=== PATIENT | female | born 1960 | race African-American/Black ===

== ENCOUNTER 2016-10-21 06:31 | Emergency (ER) | payer MEDICAID, MEDICARE ==
[~2016-10-21] VITALS: Ht 170.2 cm; Wt 81.6 kg
[~2016-10-21 06:31] MED LIST: ALPR0.5T; SERT25TA84
[2016-10-21 06:58] VITALS: BP 122/84
[2016-10-22] MEDS ORDERED: LORA-352 PO (00:35)
[2016-10-22] MEDS ORDERED: SERT-160 PO (00:35)
[2016-10-22] MEDS ORDERED: ALPR1TAB7 PO (00:35)
[2016-10-22] MEDS ORDERED: ATOR20TA50 PO (00:35)
== END 2016-10-21 09:08 | disposition left against medical advice (07) ==
LOC: ER 06:37
DX: R53.1 Weakness (principal); M79.1 Myalgia; Z53.21 Procedure and treatment not carried out due to patient leaving prior to being seen by health care provider

== ENCOUNTER 2022-02-10 09:40 | Inpatient (IN) | payer OTHER, MEDICAID ==
[~2022-02-10] VITALS: Ht 170.2 cm; Wt 85.1 kg
[~2022-02-10 09:40] MED LIST changes: -ALPR0.5T; +ALPR1TAB7 PO; +ATOR20TA50 PO; +LORA10TA6 PO; +SERT-160 PO; -SERT25TA84
[2022-02-10 10:35] LABS: Basophils # (auto) 0 10 ^3/uL (0-0.2); Basophils % (auto) 0.6 % (0.0-2.0); Eosinophils # (auto) 0.2 10 ^3/uL (0-0.8); Hematocrit 41.5 % (36.0-46.0); Hemoglobin 13.2 g/dL (12.2-16.2); Lymphocytes # (auto) 1.9 10 ^3/uL (0.4-5.4); Mean Corpuscular Hemoglobin 27.1 pg (28.0-32.0); Mean Corpuscular Hgb Conc. 31.9 g/dL (32.0-36.0); Mean Corpuscular Volume 85.1 fL (80.0-100.0); Monocytes # (auto) 0.4 10 ^3/uL (0-1.3); Monocytes % (auto) 6.5 % (0.0-12.0); Neutrophils # (auto) 3.7 10 ^3/uL (1.6-8.6); Neutrophils % (auto) 59.9 % (37.0-80.0); Nucleated Red Blood Cells % 0.1 %; Red Blood Cells 4.87 10^6/uL (4.0-5.20); Red Cell Distribution Width 13.6 % (11.8-14.3); White Blood Cell 6.2 10^3/uL (4.4-10.8)
[2022-02-10 10:49] LABS: Albumin 4.1 g/dL (3.4-5.0); Calcium 8.8 mg/dL (8.5-10.1); Potassium 3.9 mmol/L (3.5-5.1)
[2022-02-10 10:52] LABS: BUN/Creatinine Ratio 12.1; Bilirubin, Total 0.4 mg/dL (0.2-1.0)
[2022-02-10 13:16] LABS: Amylase 61 U/L (25-115); Lipase 82 U/L (73-393)
[2022-02-10] MEDS ORDERED: MORPHINE SULFATE 4 MG/ML SYR/VIAL IV ONE (15:45)
[2022-02-10] MEDS ORDERED: ONDANSETRON HCL 4 MG/2 ML VIAL IV ONE (15:45)
[2022-02-10 16:53] LABS: Urine Bacteria NONE SEEN /hpf (None Seen); Urine Blood Negative /uL (Negative); Urine Mucus FEW (None Seen); Urine Specific Gravity 1.026 (1.001-1.035); Urine WBC 18 /hpf (0 - 5)
[2022-02-10] MEDS ORDERED: PANTOPRAZOLE 40 MG/10 ML VIAL INJ IV ONE (17:00)
[2022-02-10] MEDS ORDERED: ONDANSETRON HCL 4 MG/2 ML VIAL IV PRN (17:00)
[2022-02-10] MEDS ORDERED: cefTRIAXone 1GM/50ML D5W 50 ML IV ONE (17:15)
[2022-02-10] MEDS: LACTATED RINGER'S 1,000 ML IV SCH (17:57)
[2022-02-10 18:09] LABS: INR 1.03 (0.9-1.15)
[2022-02-10 18:14] LABS: Amylase 52 U/L (25-115); Lipase 61 U/L (73-393)
[2022-02-10 18:31] LABS: Cholesterol < 50 mg/dL (< 200)
[2022-02-10 18:34] LABS: HDL Cholesterol 54 mg/dL (40-59); LDL Cholesterol 150 mg/dL (< 100); Triglycerides < 2 mg/dL (< 150)
[2022-02-10] MEDS ORDERED: ALPR0.25 PO (21:09)
[2022-02-10] MEDS ORDERED: SERT25TA84 PO (21:09)
[2022-02-10 22:21] VITALS: BP 138/78
[2022-02-11 03:58] LABS: Basophils # (auto) 0 10 ^3/uL (0-0.2); Basophils % (auto) 0.5 % (0.0-2.0); Eosinophils # (auto) 0.2 10 ^3/uL (0-0.8); Eosinophils % (auto) 3.1 % (0.0-7.0); Hematocrit 36.1 % (36.0-46.0); Hemoglobin 11.9 g/dL (12.2-16.2); Lymphocytes # (auto) 1.9 10 ^3/uL (0.4-5.4); Lymphocytes % (auto) 33.4 % (10.0-50.0); Mean Corpuscular Hemoglobin 28.2 pg (28.0-32.0); Mean Corpuscular Volume 85.4 fL (80.0-100.0); Monocytes # (auto) 0.5 10 ^3/uL (0-1.3); Monocytes % (auto) 8.7 % (0.0-12.0); Neutrophils % (auto) 54.3 % (37.0-80.0); Nucleated Red Blood Cells % 0.1 %; Red Blood Cells 4.23 10^6/uL (4.0-5.20); Red Cell Distribution Width 13.5 % (11.8-14.3); White Blood Cell 5.5 10^3/uL (4.4-10.8)
[2022-02-11 04:12] LABS: Potassium 3.5 mmol/L (3.5-5.1)
[2022-02-11 04:23] LABS: Albumin 3.3 g/dL (3.4-5.0); BUN/Creatinine Ratio 12.7; Bilirubin, Total 0.3 mg/dL (0.2-1.0); Calcium 8.5 mg/dL (8.5-10.1); Total Protein 6.6 g/dL (6.4-8.2)
[2022-02-11 05:00] VITALS: BP 109/63
[2022-02-11] MEDS: LACTATED RINGER'S 1,000 ML IV SCH ×2 (05:34→12:33)
[2022-02-11 09:00] VITALS: BP 121/71
[2022-02-11] MEDS: cefTRIAXone 1GM/50ML D5W 50 ML IV SCH (09:07)
[2022-02-11] MEDS: PANTOPRAZOLE 40 MG/10 ML VIAL INJ IV SCH (09:07)
[2022-02-11] MEDS: MORPHINE SULFATE INJ 2 MG/ml SYRG IV PRN (09:08)
[2022-02-11] MEDS ORDERED: ENOXAPARIN SOD 40 MG/0.4 ML SYRINGE SC SCH (10:00)
[2022-02-11 13:00] VITALS: BP 118/67
[2022-02-11] MEDS ORDERED: FLUTICASONE PROP NASAL SPR 0.05 % (50MCG) 16GM EACHNOSTRI PRN ×2 (16:00→16:45)
[2022-02-11 17:00] VITALS: BP 103/55
[2022-02-11] MEDS: HYDROcodone-ACET 5/325MG TAB PO PRN (18:20)
[2022-02-11 22:00] VITALS: BP 133/67
[2022-02-11] MEDS ORDERED: ALPRAZolam 0.25 MG TAB PO SCH (22:00)
[2022-02-11] MEDS: SERTRALINE HCL 50 MG TAB PO SCH (22:00)
[2022-02-11] MEDS: metroNIDAZOLE 500MG/100ML 100 ML IV SCH (22:00)
[2022-02-12 04:33] LABS: INR 1.05 (0.9-1.15); Partial Thromboplastin Time 29.1 sec (24.6-33.4)
[2022-02-12] MEDS: ALPRAZolam 0.5 MG TAB PO PRN ×2 (04:53→13:26)
[2022-02-12 05:00] VITALS: BP 129/75
[2022-02-12] MEDS: LACTATED RINGER'S 1,000 ML IV SCH ×4 (05:48→23:23)
[2022-02-12] MEDS: metroNIDAZOLE 500MG/100ML 100 ML IV SCH ×3 (06:57→21:47)
[2022-02-12] MEDS ORDERED: NEOSTIGMINE 1 MG/ML INJ (10mg/10ML VIAL) ONE (08:17)
[2022-02-12] MEDS ORDERED: SODIUM CHLORIDE LOCK 10 ML ONE (08:17)
[2022-02-12] MEDS ORDERED: fentaNYL CITRATE 100 MCG/2 ML VL ONE (08:17)
[2022-02-12] MEDS ORDERED: GLYCOPYRROLATE 0.2 MG/ML 1ML VIAL ONE (08:17)
[2022-02-12] MEDS ORDERED: ROCURONIUM 10MG/ML 10ML VIAL IV ONE (08:17)
[2022-02-12] MEDS ORDERED: MIDAZOLAM HCL 2MG/2ML 2ml VIAL (1mg/ml) ONE (08:17)
[2022-02-12] MEDS ORDERED: DexAMETHasone SOD PHOS 10MG/1ML VIAL INJ ONE (08:17)
[2022-02-12] MEDS ORDERED: MEPERIDINE HCL (25 MG/ML) 1ML VIAL ONE (08:17)
[2022-02-12] MEDS ORDERED: ONDANSETRON HCL 4 MG/2 ML VIAL ONE (08:17)
[2022-02-12] MEDS ORDERED: levoFLOXacin 500MG 100 ML IV ONE (08:30)
[2022-02-12] MEDS ORDERED: HYDROmorphone HCL 2 MG/ML VL/or syr IV PRN (08:45)
[2022-02-12] MEDS ORDERED: MORPHINE SULFATE 4 MG/ML SYR/VIAL IV PRN (08:45)
[2022-02-12] MEDS ORDERED: METOCLOPRAMIDE HCL 5MG/ml INJ 2ml VIAL IV PRN (08:45)
[2022-02-12 09:00] VITALS: BP 122/57
[2022-02-12] MEDS: cefTRIAXone 1GM/50ML D5W 50 ML IV SCH (09:00)
[2022-02-12] MEDS ORDERED: BUPIVACAINE W/ EPINEPH 0.5% INJ 50ML MDV IJ ONE (09:00)
[2022-02-12] MEDS: SERTRALINE HCL 50 MG TAB PO SCH ×3 (10:00→21:48)
[2022-02-12] MEDS: PANTOPRAZOLE 40 MG/10 ML VIAL INJ IV SCH (10:00)
[2022-02-12] MEDS ORDERED: POVIDONE IODINE 10 % TOPICAL OINT 30GM TOP ONE (10:26)
[2022-02-12] MEDS ORDERED: HYDROmorphone HCL 2 MG/ML VL/or syr IV ONE (11:03)
[2022-02-12 12:03] VITALS: BP 100/56
[2022-02-12 13:00] VITALS: BP 124/64
[2022-02-12 16:34] VITALS: BP 116/76
[2022-02-12] MEDS: MORPHINE SULFATE INJ 2 MG/ml SYRG IV PRN (18:10)
[2022-02-12 21:52] VITALS: BP 137/63
[2022-02-13 05:00] VITALS: BP 124/63
[2022-02-13] MEDS: metroNIDAZOLE 500MG/100ML 100 ML IV SCH ×2 (05:31→14:00)
[2022-02-13] MEDS: ALPRAZolam 0.5 MG TAB PO PRN (05:42)
[2022-02-13] MEDS: HYDROcodone-ACET 5/325MG TAB PO PRN ×2 (05:46→12:05)
[2022-02-13 09:00] VITALS: BP 115/67
[2022-02-13] MEDS: PANTOPRAZOLE 40 MG/10 ML VIAL INJ IV SCH (09:03)
[2022-02-13] MEDS: SERTRALINE HCL 50 MG TAB PO SCH (09:03)
[2022-02-13] MEDS: cefTRIAXone 1GM/50ML D5W 50 ML IV SCH (09:03)
[2022-02-13 11:51] LABS: Basophils # (auto) 0 10 ^3/uL (0-0.2); Basophils % (auto) 0.4 % (0.0-2.0); Eosinophils # (auto) 0 10 ^3/uL (0-0.8); Eosinophils % (auto) 0.4 % (0.0-7.0); Hematocrit 34.9 % (36.0-46.0); Hemoglobin 11.5 g/dL (12.2-16.2); Lymphocytes # (auto) 1.7 10 ^3/uL (0.4-5.4); Lymphocytes % (auto) 19.2 % (10.0-50.0); Mean Corpuscular Hemoglobin 27.9 pg (28.0-32.0); Mean Corpuscular Volume 84.4 fL (80.0-100.0); Monocytes # (auto) 0.7 10 ^3/uL (0-1.3); Monocytes % (auto) 8.3 % (0.0-12.0); Neutrophils # (auto) 6.3 10 ^3/uL (1.6-8.6); Neutrophils % (auto) 71.7 % (37.0-80.0); Red Blood Cells 4.14 10^6/uL (4.0-5.20); Red Cell Distribution Width 13.4 % (11.8-14.3); White Blood Cell 8.7 10^3/uL (4.4-10.8)
[2022-02-13 12:10] LABS: Albumin 3.5 g/dL (3.4-5.0); Calcium 9.1 mg/dL (8.5-10.1); Potassium 3.4 mmol/L (3.5-5.1)
[2022-02-13 12:15] LABS: BUN/Creatinine Ratio 6.7; Bilirubin, Total 0.3 mg/dL (0.2-1.0)
[2022-02-13 13:00] VITALS: BP 131/74
[2022-02-13] MEDS ORDERED: POTASSIUM CHL 20 Meq TABLET PO ONE (13:45)
== END 2022-02-13 15:20 | disposition home or self-care (01) | DRG 418 ==
LOC: ER 09:40 → OVERFLOW 17:01 → WEST WING 21:30
PROVIDERS: ADMIT Registered Nurse; ATTEND Internal Medicine
PROC: 0FT44ZZ Resection of Gallbladder, Percutaneous Endoscopic Approach (ICD-10-PCS; principal; 2022-02-12 09:32)
DX: K80.12 Calculus of gallbladder with acute and chronic cholecystitis without obstruction (principal); N39.0 Urinary tract infection, site not specified; E78.5 Hyperlipidemia, unspecified; F41.9 Anxiety disorder, unspecified; N18.2 Chronic kidney disease, stage 2 (mild); F32.A Depression, unspecified; Z20.822 Contact with and (suspected) exposure to COVID-19; I12.9 Hypertensive chronic kidney disease with stage 1 through stage 4 chronic kidney disease, or unspecified chronic kidney disease; Z82.3 Family history of stroke; Z82.49 Family history of ischemic heart disease and other diseases of the circulatory system; Z83.3 Family history of diabetes mellitus; Z86.73 Personal history of transient ischemic attack (TIA), and cerebral infarction without residual deficits; Z90.710 Acquired absence of both cervix and uterus; Z88.0 Allergy status to penicillin; Z88.5 Allergy status to narcotic agent
CPT/HCPCS: 36415; 71045; 74176; 76705; 80053; 80061; 81001; 82150; 83036; 83690; 84443; 84702; 85025; 85610; 85730; 86850; 86900; 86901; 87086; 93005; 96365; 96375; C9113; G0378; J0696; J1100; J1956; J2250; J2405; J3490

== ENCOUNTER → 2022-03-01 | Outpatient (CLI) | payer OTHER, MEDICAID ==
[~2022-03-01] MED LIST changes: +ALPR0.25 PO; -ALPR1TAB7 PO
[2022-03-01 09:38] LABS: Cholesterol 240 mg/dL (< 200); HDL Cholesterol 41 mg/dL (40-59); LDL Cholesterol 182 mg/dL (< 100); Triglycerides 131 mg/dL (< 150)
== END | disposition home or self-care (01) ==
LOC: LAB 08:15
PROVIDERS: ATTEND Internal Medicine
DX: Z00.00 Encounter for general adult medical examination without abnormal findings (principal); Z12.0 Encounter for screening for malignant neoplasm of stomach; F10.21 Alcohol dependence, in remission; F33.40 Major depressive disorder, recurrent, in remission, unspecified
CPT/HCPCS: 36415; 80061; 84439; 84443

== ENCOUNTER 2022-05-17 12:42 | Day surgery (SDC) | payer OTHER, MEDICAID ==
[2022-05-14 10:06] LABS: Basophils # (auto) 0.1 10 ^3/uL (0-0.2); Basophils % (auto) 0.7 % (0.0-2.0); Eosinophils # (auto) 0.2 10 ^3/uL (0-0.8); Eosinophils % (auto) 2.6 % (0.0-7.0); Hematocrit 38.1 % (36.0-46.0); Hemoglobin 12.6 g/dL (12.2-16.2); Lymphocytes # (auto) 2.2 10 ^3/uL (0.4-5.4); Lymphocytes % (auto) 28.6 % (10.0-50.0); Mean Corpuscular Hemoglobin 27.6 pg (28.0-32.0); Mean Corpuscular Volume 83.7 fL (80.0-100.0); Monocytes # (auto) 0.6 10 ^3/uL (0-1.3); Monocytes % (auto) 7.6 % (0.0-12.0); Neutrophils # (auto) 4.6 10 ^3/uL (1.6-8.6); Neutrophils % (auto) 60.5 % (37.0-80.0); Nucleated Red Blood Cells % 0.1 %; Red Blood Cells 4.56 10^6/uL (4.0-5.20); Red Cell Distribution Width 14.1 % (11.8-14.3); White Blood Cell 7.6 10^3/uL (4.4-10.8)
[2022-05-14 10:25] LABS: INR 0.97 (0.9-1.15); Partial Thromboplastin Time 27.9 sec (24.6-33.4)
[2022-05-14 11:19] LABS: Albumin 3.9 g/dL (3.4-5.0); BUN/Creatinine Ratio 15.4; Bilirubin, Total 0.4 mg/dL (0.2-1.0); Calcium 9.1 mg/dL (8.5-10.1); Potassium 4.6 mmol/L (3.5-5.1); Total Protein 7.9 g/dL (6.4-8.2)
[~2022-05-17] VITALS: Ht 170.2 cm; Wt 80.7 kg
[~2022-05-17 12:42] MED LIST changes: +LEVO25TA49 PO; -LORA10TA6 PO
[2022-05-17] MEDS ORDERED: PROPOFOL 10 MG/ML 20 ML IV ONE ×2 (14:02→14:23)
[2022-05-17 15:08] VITALS: BP 125/70
== END 2022-05-17 15:19 | disposition home or self-care (01) ==
LOC: GI 12:42
PROVIDERS: ATTEND Internal Medicine Gastroenterology
DX: R19.7 Diarrhea, unspecified (principal); K64.0 First degree hemorrhoids; Z86.010 Personal history of colon polyps; Z20.822 Contact with and (suspected) exposure to COVID-19; I10 Essential (primary) hypertension; F32.A Depression, unspecified; F41.9 Anxiety disorder, unspecified; Z90.710 Acquired absence of both cervix and uterus; Z98.890 Other specified postprocedural states; Z79.899 Other long term (current) drug therapy
CPT/HCPCS: 36415; 45378; 80053; 85025; 85610; 85730; J2704; J7030; U0003

== ENCOUNTER → 2022-07-22 | Outpatient (CLI) | payer OTHER, MEDICAID ==
[2022-07-22 09:46] LABS: Cholesterol 166 mg/dL (< 200); HDL Cholesterol 55 mg/dL (40-59); LDL Cholesterol 105 mg/dL (< 100); Triglycerides 86 mg/dL (< 150)
== END | disposition home or self-care (01) ==
LOC: LAB 08:26
PROVIDERS: ATTEND Internal Medicine
DX: E78.5 Hyperlipidemia, unspecified (principal)
CPT/HCPCS: 36415; 80061

== ENCOUNTER 2022-09-04 09:17 | Emergency (ER) | payer OTHER, MEDICAID ==
[~2022-09-04] VITALS: Ht 170.2 cm; Wt 82.0 kg
[2022-09-04] MEDS ORDERED: HYDROcodone-ACET 10/325MG TAB PO ONE (11:15)
[2022-09-04] MEDS ORDERED: KETOROLAC TROMETH 60MG/2ML VIAL IM ONE (11:15)
[2022-09-04] MEDS ORDERED: IBUP800T26 PO (11:46)
[2022-09-04] MEDS ORDERED: HYDR-4902 PO (11:46)
[2022-09-04] MEDS ORDERED: CYCL-839 PO (11:46)
[2022-09-04 12:10] VITALS: BP 114/73
== END 2022-09-04 12:11 | disposition home or self-care (01) ==
LOC: ER 09:17
DX: M54.50 Low back pain, unspecified (principal); M62.830 Muscle spasm of back; E78.5 Hyperlipidemia, unspecified; Z90.710 Acquired absence of both cervix and uterus; Z86.73 Personal history of transient ischemic attack (TIA), and cerebral infarction without residual deficits; Z88.0 Allergy status to penicillin
CPT/HCPCS: 72100; 96372; 99283; J1885

== ENCOUNTER → 2023-04-22 | Outpatient (CLI) | payer OTHER, MEDICAID ==
[~2023-04-22] MED LIST changes: +CYCL-839 PO; +HYDR-4902 PO; +IBUP-1455 PO
[2023-04-22 08:57] LABS: Basophils # (auto) 0.1 10 ^3/uL (0-0.2); Basophils % (auto) 0.9 % (0.0-2.0); Eosinophils # (auto) 0.1 10 ^3/uL (0-0.8); Eosinophils % (auto) 2.4 % (0.0-7.0); Hematocrit 38.8 % (36.0-46.0); Hemoglobin 12.7 g/dL (12.2-16.2); Lymphocytes # (auto) 1.7 10 ^3/uL (0.4-5.4); Lymphocytes % (auto) 28.2 % (10.0-50.0); Mean Corpuscular Hemoglobin 28.1 pg (28.0-32.0); Mean Corpuscular Hgb Conc. 32.9 g/dL (32.0-36.0); Mean Corpuscular Volume 85.5 fL (80.0-100.0); Monocytes # (auto) 0.4 10 ^3/uL (0-1.3); Monocytes % (auto) 6.6 % (0.0-12.0); Neutrophils # (auto) 3.7 10 ^3/uL (1.6-8.6); Neutrophils % (auto) 61.9 % (37.0-80.0); Red Blood Cells 4.53 10^6/uL (4.0-5.20); Red Cell Distribution Width 14.9 % (11.8-14.3)
[2023-04-22 09:09] LABS: Urine Bacteria NONE SEEN /hpf (None Seen); Urine Blood Negative /uL (Negative); Urine Clarity Clear (Clear); Urine Color Yellow (Yellow); Urine Mucus FEW (None Seen); Urine Protein, UAD Negative (Negative); Urine Specific Gravity 1.019 (1.001-1.035); Urine Urobilinogen Normal (Negative); Urine WBC 2 /hpf (0 - 5); Urine pH 5.5 (5.0-8.0)
[2023-04-22 09:23] LABS: Alanine Aminotransferase 15 U/L (7-40); Alkaline Phosphatase 66 U/L (46-116); Anion Gap 7 (5-15); Aspartate Aminotransferase 15 U/L (13-40); BUN/Creatinine Ratio 11.4 (10.0-20.0); Blood Urea Nitrogen 9 mg/dL (9-23); Calcium 9.5 mg/dL (8.5-10.1); Carbon Dioxide 26 mmol/L (20-30); Chloride 109 mmol/L (98-107); Glucose 103 mg/dL (74-106); LDL Cholesterol 214 mg/dL (< 100); Potassium 3.9 mmol/L (3.5-5.1); Sodium 142 mmol/L (136-145); Triglycerides 162 mg/dL (< 150)
[2023-04-22 09:24] LABS: Albumin 4.6 g/dL (3.2-4.8); Bilirubin, Total 0.5 mg/dL (0.2-1.0); Cholesterol 302 mg/dL (< 200); HDL Cholesterol 60 mg/dL (40-59); Total Protein 7.5 g/dL (5.7-8.2)
== END | disposition home or self-care (01) ==
LOC: LAB 08:40
PROVIDERS: ATTEND Internal Medicine
DX: Z12.11 Encounter for screening for malignant neoplasm of colon (principal); Z13.820 Encounter for screening for osteoporosis; Z00.01 Encounter for general adult medical examination with abnormal findings; E03.9 Hypothyroidism, unspecified; E78.5 Hyperlipidemia, unspecified
CPT/HCPCS: 36415; 80053; 80061; 81001; 82274; 82306; 83036; 84439; 84443; 85025

== ENCOUNTER → 2023-07-03 | Outpatient (CLI) | payer OTHER, MEDICAID ==
[2023-07-03 09:14] LABS: Alanine Aminotransferase 24 U/L (7-40); Albumin 4.6 g/dL (3.2-4.8); Alkaline Phosphatase 89 U/L (46-116); Anion Gap 7 (5-15); Aspartate Aminotransferase 15 U/L (13-40); BUN/Creatinine Ratio 7.1 (10.0-20.0); Blood Urea Nitrogen 6 mg/dL (9-23); Calcium 9.5 mg/dL (8.5-10.1); Carbon Dioxide 24 mmol/L (20-30); Chloride 109 mmol/L (98-107); Creatine Kinase IFCC 81 U/L (34-145); Glucose 96 mg/dL (74-106); Potassium 3.8 mmol/L (3.5-5.1); Sodium 140 mmol/L (136-145)
[2023-07-03 09:15] LABS: Bilirubin, Total 0.3 mg/dL (0.2-1.0); Total Protein 7.2 g/dL (5.7-8.2)
== END | disposition home or self-care (01) ==
LOC: LAB 08:09
PROVIDERS: ATTEND Internal Medicine
DX: E78.2 Mixed hyperlipidemia (principal); R73.01 Impaired fasting glucose; R94.4 Abnormal results of kidney function studies; M85.59 Aneurysmal bone cyst, multiple sites
CPT/HCPCS: 36415; 80053; 82550

== ENCOUNTER 2024-02-08 13:05 | Inpatient (IN) | payer OTHER, MEDICAID ==
[~2024-02-08] VITALS: Ht 170.2 cm; Wt 81.0 kg
[~2024-02-08 13:05] MED LIST changes: +LEVO25TA2 PO; -LEVO25TA49 PO
[2024-02-08 14:18] LABS: Basophils # (auto) 0 10 ^3/uL (0-0.2); Basophils % (auto) 0.4 % (0.0-2.0); Eosinophils # (auto) 0.3 10 ^3/uL (0-0.8); Eosinophils % (auto) 3.6 % (0.0-7.0); Hematocrit 35.4 % (36.0-46.0); Hemoglobin 12.1 g/dL (12.2-16.2); Lymphocytes # (auto) 2.5 10 ^3/uL (0.4-5.4); Lymphocytes % (auto) 32.3 % (10.0-50.0); Mean Corpuscular Hemoglobin 27.9 pg (28.0-32.0); Mean Corpuscular Hgb Conc. 34.1 g/dL (32.0-36.0); Mean Corpuscular Volume 81.8 fL (80.0-100.0); Monocytes # (auto) 0.6 10 ^3/uL (0-1.3); Monocytes % (auto) 8.2 % (0.0-12.0); Neutrophils # (auto) 4.3 10 ^3/uL (1.6-8.6); Neutrophils % (auto) 55.5 % (37.0-80.0); Red Blood Cells 4.32 10^6/uL (4.0-5.20); Red Cell Distribution Width 14.7 % (11.8-14.3); White Blood Cell 7.7 10^3/uL (4.4-10.8)
[2024-02-08 14:26] LABS: Chloride 108 mmol/L (98-107); Potassium 3.8 mmol/L (3.5-5.1); Sodium 142 mmol/L (136-145)
[2024-02-08 14:27] LABS: Anion Gap 6 (5-15); Calcium 10.1 mg/dL (8.7-10.4); Carbon Dioxide 28 mmol/L (20-30)
[2024-02-08 14:32] LABS: BUN/Creatinine Ratio 13.3 (10.0-20.0); Blood Urea Nitrogen 10 mg/dL (9-23); Glucose 83 mg/dL (74-106)
[2024-02-08 15:17] VITALS: PULSE 70; RESP 16; O2SAT 98
[2024-02-08] MEDS ORDERED: DOCUSATE SOD 100 MG CAP PO PRN (16:00)
[2024-02-08] MEDS ORDERED: HYDROcodone-ACET 5/325MG TAB PO PRN (16:00)
[2024-02-08] MEDS ORDERED: ACETAMINOPHEN 325 MG TAB PO PRN (16:00)
[2024-02-08] MEDS: PANTOPRAZOLE 40 MG/10 ML VIAL INJ IV SCH (17:31)
[2024-02-08] MEDS: ONDANSETRON HCL 4 MG/2 ML VIAL IV PRN (17:32)
[2024-02-08] MEDS: CYCLOBENZAPRINE HCL 10 MG TAB PO SCH (23:16)
[2024-02-08] MEDS: ATORVASTATIN 20 MG TAB PO SCH (23:16)
[2024-02-08] MEDS: SODIUM CHLOR 0.9% PF (SALINE LOCK) 10ML VIAL/SYR IV SCH (23:17)
[2024-02-09 03:49] LABS: Basophils # (auto) 0 10 ^3/uL (0-0.2); Basophils % (auto) 0.5 % (0.0-2.0); Eosinophils # (auto) 0.3 10 ^3/uL (0-0.8); Eosinophils % (auto) 3.9 % (0.0-7.0); Hematocrit 34.4 % (36.0-46.0); Hemoglobin 11.4 g/dL (12.2-16.2); Lymphocytes % (auto) 28.3 % (10.0-50.0); Mean Corpuscular Hemoglobin 27.4 pg (28.0-32.0); Mean Corpuscular Hgb Conc. 33.3 g/dL (32.0-36.0); Mean Corpuscular Volume 82.5 fL (80.0-100.0); Monocytes # (auto) 0.7 10 ^3/uL (0-1.3); Monocytes % (auto) 9.8 % (0.0-12.0); Neutrophils % (auto) 57.5 % (37.0-80.0); Red Blood Cells 4.17 10^6/uL (4.0-5.20); Red Cell Distribution Width 14.3 % (11.8-14.3); White Blood Cell 6.9 10^3/uL (4.4-10.8)
[2024-02-09 04:11] LABS: Alanine Aminotransferase 17 U/L (7-40); Alkaline Phosphatase 70 U/L (46-116); Anion Gap 6 (5-15); Aspartate Aminotransferase 10 U/L (13-40); BUN/Creatinine Ratio 11.1 (10.0-20.0); Blood Urea Nitrogen 9 mg/dL (9-23); Calcium 9.2 mg/dL (8.7-10.4); Carbon Dioxide 27 mmol/L (20-30); Chloride 110 mmol/L (98-107); Glucose 92 mg/dL (74-106); Potassium 3.7 mmol/L (3.5-5.1); Sodium 143 mmol/L (136-145)
[2024-02-09 04:12] LABS: Bilirubin, Total 0.6 mg/dL (0.2-1.0); Total Protein 6.7 g/dL (5.7-8.2)
[2024-02-09] MEDS: ALPRAZolam 0.25 MG TAB PO SCH (10:21)
[2024-02-09] MEDS: OMNIPAQUE 12mg/ml 500ml ORAL SOLUTION PO ONE (15:02)
[2024-02-09] MEDS ORDERED: IOHEXOL 300 MG/ML 100ML BOTTLE IJ ONE (16:45)
[2024-02-09 17:30] VITALS: PULSE 72; RESP 17; TEMP 98.5; O2SAT 97
[2024-02-09 17:50] VITALS: PULSE 72; RESP 17; O2SAT 97
[2024-02-09 17:57] VITALS: BP 133/74; PULSE 72; RESP 17; TEMP 98.5; O2SAT 97
[2024-02-09] MEDS ORDERED: FLUT1SPR5 (18:40)
[2024-02-09 20:00] VITALS: PULSE 55; RESP 16; O2SAT 95
[2024-02-09 21:00] VITALS: BP 116/64; PULSE 53; RESP 18; TEMP 98; O2SAT 95
[2024-02-09] MEDS: SUCRALFATE 1 GM/10 ML ORAL SUSP GT SCH (21:26)
[2024-02-10] VITALS (8 sets, daily range): BP systolic 103–137; BP diastolic 47–83; PULSE 60–88; RESP 15–18; TEMP 98.6–98.7; O2SAT 95–100
[2024-02-10 07:00] LABS: Basophils # (auto) 0 10 ^3/uL (0-0.2); Basophils % (auto) 0.8 % (0.0-2.0); Eosinophils # (auto) 0.3 10 ^3/uL (0-0.8); Eosinophils % (auto) 4.5 % (0.0-7.0); Hemoglobin 12.8 g/dL (12.2-16.2); Lymphocytes # (auto) 1.8 10 ^3/uL (0.4-5.4); Lymphocytes % (auto) 30.2 % (10.0-50.0); Mean Corpuscular Hemoglobin 27.8 pg (28.0-32.0); Mean Corpuscular Hgb Conc. 33.8 g/dL (32.0-36.0); Mean Corpuscular Volume 82.3 fL (80.0-100.0); Monocytes # (auto) 0.5 10 ^3/uL (0-1.3); Monocytes % (auto) 8.7 % (0.0-12.0); Neutrophils # (auto) 3.3 10 ^3/uL (1.6-8.6); Neutrophils % (auto) 55.8 % (37.0-80.0); Nucleated Red Blood Cells % 0.2 %; Red Blood Cells 4.61 10^6/uL (4.0-5.20); Red Cell Distribution Width 14.3 % (11.8-14.3); White Blood Cell 5.9 10^3/uL (4.4-10.8)
[2024-02-10 07:35] LABS: Alanine Aminotransferase 20 U/L (7-40); Albumin 4.2 g/dL (3.2-4.8); Alkaline Phosphatase 71 U/L (46-116); Anion Gap 7 (5-15); Aspartate Aminotransferase 18 U/L (13-40); BUN/Creatinine Ratio 7.2 (10.0-20.0); Blood Urea Nitrogen 6 mg/dL (9-23); Calcium 9.8 mg/dL (8.7-10.4); Carbon Dioxide 28 mmol/L (20-30); Chloride 108 mmol/L (98-107); Glucose 77 mg/dL (74-106); Magnesium 2.4 mg/dL (1.6-2.6); Potassium 3.5 mmol/L (3.5-5.1); Sodium 143 mmol/L (136-145)
[2024-02-10 07:36] LABS: Bilirubin, Total 0.7 mg/dL (0.2-1.0); Total Protein 6.9 g/dL (5.7-8.2)
[2024-02-10] MEDS ORDERED: NALOXONE HCL 0.4 MG/ML VIAL ONE (09:57)
[2024-02-10] MEDS ORDERED: SODIUM CHLORIDE LOCK 10 ML ONE (09:57)
[2024-02-10] MEDS ORDERED: FLUMAZENIL 0.1 MG/ML INJ 10ML MDV IV ONE (09:57)
[2024-02-10] MEDS: LIDOCAINE VISCOUS 2% 15ML UD ONE (14:19)
[2024-02-10] MEDS: fentaNYL CITRATE 100 MCG/2 ML VL ONE (14:20)
[2024-02-10] MEDS: MIDAZOLAM HCL 5 MG/ML-1ML VIAL ONE (14:20)
[2024-02-10] MEDS ORDERED: SUCR1TAB31 OR (15:07)
[2024-02-10] MEDS ORDERED: PANT40TA2 PO (15:07)
== END 2024-02-10 18:40 | disposition home or self-care (01) | DRG 380 ==
LOC: ER 13:05 → OVERFLOW 15:53 → CENTRAL 02-09 17:33
PROVIDERS: ADMIT Internal Medicine; ATTEND Internal Medicine
PROC: 0DB58ZX Excision of Esophagus, Via Natural or Artificial Opening Endoscopic, Diagnostic (ICD-10-PCS; principal; 2024-02-10 14:18)
DX: K22.11 Ulcer of esophagus with bleeding (principal); J96.00 Acute respiratory failure, unspecified whether with hypoxia or hypercapnia; D64.9 Anemia, unspecified; K29.71 Gastritis, unspecified, with bleeding; F10.10 Alcohol abuse, uncomplicated; F41.9 Anxiety disorder, unspecified; F32.A Depression, unspecified; E78.5 Hyperlipidemia, unspecified; Y90.9 Presence of alcohol in blood, level not specified; K44.9 Diaphragmatic hernia without obstruction or gangrene; T39.395A Adverse effect of other nonsteroidal anti-inflammatory drugs [NSAID], initial encounter; K22.2 Esophageal obstruction; Z88.0 Allergy status to penicillin; Z88.5 Allergy status to narcotic agent; Z86.73 Personal history of transient ischemic attack (TIA), and cerebral infarction without residual deficits; Z90.49 Acquired absence of other specified parts of digestive tract; Z90.710 Acquired absence of both cervix and uterus; Z83.3 Family history of diabetes mellitus; Z82.49 Family history of ischemic heart disease and other diseases of the circulatory system; Z82.3 Family history of stroke
CPT/HCPCS: 36415; 71046; 74177; 80048; 80053; 83735; 83880; 84484; 85025; 85379; 96374; 99291; G0378; J2250; J2405; J2470

== ENCOUNTER → 2024-02-24 | Outpatient (CLI) | payer OTHER, MEDICAID ==
[~2024-02-24] MED LIST changes: +FLUT1SPR5; -HYDR-4902 PO; -IBUP-1455 PO; +PANT40TA2 PO; +SUCR1TAB31 OR
[2024-02-24 12:46] LABS: Urine Bacteria None Seen /hpf (None Seen)
[2024-02-24 12:56] LABS: Basophils # (auto) 0 10 ^3/uL (0-0.2); Basophils % (auto) 0.7 % (0.0-2.0); Eosinophils # (auto) 0.2 10 ^3/uL (0-0.8); Eosinophils % (auto) 3.6 % (0.0-7.0); Hematocrit 37.9 % (36.0-46.0); Hemoglobin 12.9 g/dL (12.2-16.2); Lymphocytes # (auto) 2.3 10 ^3/uL (0.4-5.4); Lymphocytes % (auto) 39.2 % (10.0-50.0); Mean Corpuscular Hemoglobin 28.1 pg (28.0-32.0); Mean Corpuscular Hgb Conc. 34.1 g/dL (32.0-36.0); Mean Corpuscular Volume 82.3 fL (80.0-100.0); Monocytes # (auto) 0.4 10 ^3/uL (0-1.3); Monocytes % (auto) 6.9 % (0.0-12.0); Neutrophils # (auto) 2.9 10 ^3/uL (1.6-8.6); Neutrophils % (auto) 49.6 % (37.0-80.0); Nucleated Red Blood Cells % 0.1 %; Platelet Count (auto) 244 10^3/uL (140-450); Red Blood Cells 4.61 10^6/uL (4.0-5.20); Red Cell Distribution Width 13.6 % (11.8-14.3); White Blood Cell 5.9 10^3/uL (4.4-10.8)
[2024-02-24 13:17] LABS: Urine Blood Negative /uL (Negative); Urine Clarity Turbid (Clear); Urine Color Yellow (Yellow); Urine Hyaline Cast FEW /lpf (0 - 2); Urine Mucus FEW (None Seen); Urine Protein, UAD TRACE (Negative); Urine Specific Gravity 1.026 (1.001-1.035); Urine Urobilinogen Normal (Negative); Urine WBC 7 /hpf (0 - 5); Urine pH 5.5 (5.0-9.0)
[2024-02-24 13:53] LABS: Alanine Aminotransferase 17 U/L (7-40); Albumin 4.7 g/dL (3.2-4.8); Alkaline Phosphatase 77 U/L (46-116); Anion Gap 7 (5-15); Aspartate Aminotransferase 16 U/L (13-40); BUN/Creatinine Ratio 8.7 (10.0-20.0); Blood Urea Nitrogen 8 mg/dL (9-23); Calcium 10.3 mg/dL (8.7-10.4); Carbon Dioxide 24 mmol/L (20-30); Chloride 109 mmol/L (98-107); Cholesterol 230 mg/dL (< 200); Glucose 98 mg/dL (74-106); LDL Cholesterol 166 mg/dL (< 100); Potassium 3.9 mmol/L (3.5-5.1); Sodium 140 mmol/L (136-145); Triglycerides 117 mg/dL (< 150)
[2024-02-24 13:54] LABS: Bilirubin, Total 0.5 mg/dL (0.2-1.0); HDL Cholesterol 41 mg/dL (40-59); Total Protein 7.9 g/dL (5.7-8.2)
== END | disposition home or self-care (01) ==
LOC: LAB 12:30
PROVIDERS: ATTEND Internal Medicine
DX: Z00.01 Encounter for general adult medical examination with abnormal findings (principal); R73.01 Impaired fasting glucose; E78.2 Mixed hyperlipidemia
CPT/HCPCS: 36415; 80053; 80061; 81001; 83036; 84439; 84443; 85025

== ENCOUNTER 2024-12-21 11:55 | Outpatient (CLI) | payer OTHER, MEDICAID ==
[2024-12-21 12:54] LABS: Chloride 108 mmol/L (98-107); Potassium 4.2 mmol/L (3.5-5.1); Sodium 144 mmol/L (136-145)
[2024-12-21 12:55] LABS: Anion Gap 9 (5-15); Calcium 10.1 mg/dL (8.7-10.4); Carbon Dioxide 27 mmol/L (20-31)
[2024-12-21 13:00] LABS: BUN/Creatinine Ratio 13.4 (10.0-20.0); Blood Urea Nitrogen 11 mg/dL (9-23); Glucose 82 mg/dL (74-106)
[2024-12-21 13:06] LABS: Free T3 3.1 pg/mL (2.3-4.2)
[2024-12-21 13:07] LABS: Free T4 (Free Thyroxine) 0.81 ng/dL (0.89-1.76)
== END 2024-12-21 17:00 | disposition home or self-care (01) ==
LOC: LAB 11:55
PROVIDERS: ATTEND Internal Medicine
DX: R79.89 Other specified abnormal findings of blood chemistry (principal); R94.4 Abnormal results of kidney function studies; Z79.899 Other long term (current) drug therapy
CPT/HCPCS: 36415; 80048; 84439; 84443; 84481